=== PATIENT | male | born 1975 | race Caucasian/White ===

== ENCOUNTER 2018-04-21 23:08 | Emergency (ER) | payer BC ==
[2018-04-21] MEDS ORDERED: FENTANYL CITRATE INJ/PF 100 MCG/2 ML AMPUL IV ONE (23:23)
--- NOTE | 2018-04-21 23:40 | ER Document Report ---
ED Extremity Problem, Lower - General Mode of Arrival: Ambulatory Information source: Patient TRAVEL OUTSIDE OF THE [place] IN LAST 30 DAYS: No <SWETA PAEZ - Last Filed: 04/21/18 23:35> <JAS LANGLEY - Last Filed: 04/22/18 01:32> - General Chief Complaint: Knee Injury Stated Complaint: FALL/KNEE PAIN Time Seen by Provider: 04/21/18 23:19 Notes: Patient is a 42 year old male presenting to the emergency department complaining of left leg pain onset today. Patient states he was walking down stairs when he fell and felt something snap near his left knee. He states he fell approximately 4-5 steps. Patient states he received fentanyl from EMS and is feeling a little bit better. (SWETA PAEZ) Past Medical History - General Information source: Patient - Social History Smoking Status: Unknown if Ever Smoked Family History: Reviewed & Not Pertinent Patient has suicidal ideation: No Patient has homicidal ideation: No - Past Medical History Cardiac Medical History: Reports: Hx Hypertension <SWETA PAEZ - Last Filed: 04/21/18 23:35> Review of Systems - Review of Systems Constitutional: No symptoms reported EENT: No symptoms reported Cardiovascular: No symptoms reported Respiratory: No symptoms reported Gastrointestinal: No symptoms reported Genitourinary: No symptoms reported Male Genitourinary: No symptoms reported Musculoskeletal: See HPI Skin: No symptoms reported Hematologic/Lymphatic: No symptoms reported Neurological/Psychological: No symptoms reported -: Yes All other systems reviewed and negative <SWETA PAEZ - Last Filed: 04/21/18 23:35> Physical Exam <SWETA PAEZ - Last Filed: 04/21/18 23:35> <JAS LANGLEY - Last Filed: 04/22/18 01:32> - Notes Notes: GENERAL: Alert, interacts well. No acute distress. HEAD: Normocephalic, atraumatic. EYES: Pupils equal, round, and reactive to light. Extraocular movements intact. ENT: Oral mucosa moist, tongue midline. NECK: Full range of motion. Supple. Trachea midline. LUNGS: Clear to auscultation bilaterally, no wheezes, rales, or rhonchi. No respiratory distress. HEART: Regular rate and rhythm. No murmurs, gallops, or rubs. ABDOMEN: Soft, non-tender. Non-distended. Bowel sounds present in all 4 quadrants. EXTREMITIES: Moves all 4 extremities spontaneously. Left lower leg has decreased flexion due to pain. Left toes, ankle, and hip within normal limits. Minimal swelling at left knee. Radial and dorsalis pedis pulses 2/4 bilaterally. No cyanosis. NEUROLOGICAL: Alert and oriented x3. Normal speech. PSYCH: Normal affect, normal mood. SKIN: Warm, dry, normal turgor. No rashes or lesions noted. (SWETA PAEZ) Course <SWETA PAEZ - Last Filed: 04/21/18 23:35> - Diagnostic Test Radiology reviewed: Reports reviewed <JAS LANGLEY - Last Filed: 04/22/18 01:32> - Re-evaluation Re-evalutation: 04/22/18 Patient is a 42-year-old male who comes in after injuring his left knee will falling down stairs. Knee went under him. Patient has swelling but does have range of motion of his left knee. It is not stable. Anterior and posterior drawer negative. Patient has a joint effusion and some tenderness to palpation over his patellar ligament. No acute findings for fracture or dislocation clinically or on x-ray. Patient will be placed in a knee immobilizer, given crutches and pain medication. He is to follow-up with his primary care doctor when he gets back to [place] and also orthopedics. Understands agrees with plan. Stable for discharge home. No other injuries. (JAS LANGLEY) Procedures - Immobilization Left Knee Pre-Proc Neuro Vasc Exam: Normal Immobilizer type: Knee immobilizer Performed by: PCT Post-Proc Neuro Vasc Exam: Normal Alignment checked and good: Yes <JAS LANGLEY - Last Filed: 04/22/18 01:32> Discharge <SWETA PAEZ - Last Filed: 04/21/18 23:35> <JAS LANGLEY - Last Filed: 04/22/18 01:32> - Discharge Clinical Impression: Injury of knee, left Qualifiers: Encounter type: initial encounter Qualified Code(s): S89.92XA - Unspecified injury of left lower leg, initial encounter Condition: Stable Disposition: HOME, SELF-CARE Instructions: Use of Crutches ([facility]), Ice & Elevation ([facility]), Suspected Internal Knee Injury ([facility]), Knee Immobilizing Splint ([facility]), Sprained Knee ([facility]) Additional Instructions: Please follow-up with your doctor on Tuesday. Please return if you have any worsening or concerning symptoms. Discuss referral to an orthopedic doctor. Prescriptions: Docusate Sodium [Colace 100 mg Capsule] 100 mg PO BID #60 capsule Oxycodone HCl/Acetaminophen [Percocet 5-325 mg Tablet] 1 - 2 tab PO Q4H PRN #15 tablet PRN Reason: Scribe Attestation: 04/22/18 01:31 I personally performed the services described in the documentation, reviewed and edited the documentation which was dictated to the scribe in my presence, and it accurately records my words and actions. (JAS LANGLEY) Scribe Documentation - Scribe Written by Megha:: Megha Glass, 04/21/2018 23:39 acting as scribe for :: Nina <SWETA PAEZ - Last Filed: 04/21/18 23:35>
--- NOTE | 2018-04-21 23:56 | RADIOLOGY REPORT (SQ) ---
EXAM DESCRIPTION: XR KNEE 4 OR MORE VIEWS COMPLETED DATE/TME: 04/21/2018 23:23 CLINICAL HISTORY: 42 years, Male, fall, injury, pain COMPARISON: None. NUMBER OF VIEWS: 4 LIMITATIONS: None. FINDINGS: Moderate prepatellar swelling, moderate left knee effusion. Bones and joints appear intact. IMPRESSION: Swelling.
[2018-04-22] MEDS ORDERED: FENTANYL CITRATE INJ/PF 100 MCG/2 ML AMPUL IV ONE (00:28)
[2018-04-22] MEDS ORDERED: HYDROCODONE/ACETAMINOPHEN 5-325 MG (6 TAB/ER DISP) PO PRN (00:28)
== END 2018-04-22 01:19 | disposition home or self-care (01) ==
LOC: ER 23:08
DX: S89.92XA Unspecified injury of left lower leg, initial encounter (principal); W10.9XXA Fall (on) (from) unspecified stairs and steps, initial encounter; I10 Essential (primary) hypertension
CPT/HCPCS: 96376; 99284; 96374; 73564; L1830; J3010 ×2